=== PATIENT | female | born 1955 | race Caucasian/White ===

== ENCOUNTER 2016-06-24 10:03 | Outpatient (CLI) | payer OTHER | END 2016-06-24 10:04 | disposition home or self-care (01) | DRG 561 | LOC: CONVCARE 10:03 | PROVIDERS: ATTEND Orthopaedic Surgery | DX: Z47.1 Aftercare following joint replacement surgery (principal); M25.561 Pain in right knee; Z96.653 Presence of artificial knee joint, bilateral; M25.562 Pain in left knee | CPT/HCPCS: 73562 ==